=== PATIENT | female | born 1960 | race Two or more races ===

== ENCOUNTER → 2024-09-28 | Day surgery (SDC) | payer MEDICAID ==
[2024-09-24 12:07] LABS: Urine Bacteria None Seen /hpf (None Seen)
[2024-09-24 12:26] LABS: Urine Blood TRACE /uL (Negative); Urine Clarity Clear (Clear); Urine Color Light-Yellow (Yellow); Urine Protein, UAD 3+ (Negative); Urine Specific Gravity 1.012 (1.001-1.035); Urine Squamous Epithelial Cell FEW /hpf (<5); Urine Urobilinogen Normal (Negative); Urine WBC 1 /HPF (0-5)
[2024-09-24 12:31] LABS: Basophils # (auto) 0 10 ^3/uL (0-0.2); Basophils % (auto) 0.3 % (0.0-2.0); Eosinophils # (auto) 0.2 10 ^3/uL (0-0.8); Eosinophils % (auto) 2.5 % (0.0-7.0); Hematocrit 31.5 % (36.0-46.0); Hemoglobin 10.6 g/dL (12.2-16.2); Lymphocytes # (auto) 1.7 10 ^3/uL (0.4-5.4); Mean Corpuscular Hemoglobin 29.6 pg (28.0-32.0); Mean Corpuscular Hgb Conc. 33.7 g/dL (32.0-36.0); Mean Corpuscular Volume 87.8 fL (80.0-100.0); Monocytes # (auto) 0.3 10 ^3/uL (0-1.3); Monocytes % (auto) 4.4 % (0.0-12.0); Neutrophils # (auto) 4.5 10 ^3/uL (1.6-8.6); Neutrophils % (auto) 67.8 % (37.0-80.0); Nucleated Red Blood Cells % 0.1 %; Platelet Count (auto) 145 10^3/uL (140-450); Red Blood Cells 3.59 10^6/uL (4.0-5.20); Red Cell Distribution Width 14.8 % (11.8-14.3); White Blood Cell 6.6 10^3/uL (4.4-10.8)
[2024-09-24 12:51] LABS: INR 0.97 (0.9-1.15); Partial Thromboplastin Time 29.2 SEC (24.5-34.5); Prothrombin Time 10.3 sec (9.3-11.8)
[2024-09-24 13:12] LABS: Alanine Aminotransferase 10 U/L (7-40); Albumin 3.7 g/dL (3.2-4.8); Alkaline Phosphatase 108 U/L (46-116); Anion Gap 10 (5-15); Aspartate Aminotransferase 15 U/L (13-40); BUN/Creatinine Ratio 4.6 (10.0-20.0); Carbon Dioxide 25 mmol/L (20-31); Chloride 102 mmol/L (98-107); Potassium 4.3 mmol/L (3.5-5.1); Sodium 137 mmol/L (136-145); Total Protein 6.3 g/dL (5.7-8.2)
[2024-09-24 13:19] LABS: Bilirubin, Total 0.3 mg/dL (0.2-1.0); Blood Urea Nitrogen 26 mg/dL (9-23); Calcium 8.7 mg/dL (8.7-10.4); Glucose 147 mg/dL (74-106)
[~2024-09-28] VITALS: Ht 157.5 cm; Wt 72.6 kg
[~2024-09-28] MED LIST: B-CO-6 OR; CARV12.544 PO; DexAMETHasone SOD PHOS 10MG/1ML VIAL INJ ONE; EPINEPHrine HCL 1 MG/1 ML AMP ONE; FENO145T27 OR; FLUMAZENIL 0.1 MG/ML INJ 10ML MDV IV PRN; GLIP5TAB21 PO; GLYCOPYRROLATE 0.2 MG/ML 1ML VIAL ONE; HEPARIN SODIUM (PORCINE) 5000 UNITS/ML 1ML VIAL ONE; HYDROmorphone HCL 2 MG/ML VL/or syr IV PRN; INSLANTI SC; KETAMINE 50mg/ML 1ml syringe ONE; LIDO1KIT EX; LIDOCAINE 1% INJ PF 5ML AMP ONE; NALOXONE HCL 0.4 MG/ML VIAL IV PRN; NIFE90TA75 PO; ONDANSETRON HCL 4 MG/2 ML VIAL IV PRN; ONDANSETRON HCL 4 MG/2 ML VIAL ONE; PANT40TA2 PO; PROPOFOL 10 MG/ML 20 ML IV ONE; QUET50TA PO; SERT-160 PO; SEVE800T8 PO; ceFAZolin 2 GM/D5W50ml 50 ML IV ONE; ePHEDrine SULFATE 50 MG/ML AMP IV PRN; fentaNYL CITRATE 100 MCG/2 ML VL IV PRN; hydrALAZINE HCL 20 MG/ML VL IV PRN
[2024-09-28] MEDS: BUPIVACAINE HCL 0.25% P/F 10 ML VIAL ONE (08:06)
[2024-09-28] MEDS: LIDOCAINE 1% HCL (LOCAL ANESTH.) INJ 20ML MDV ONE (08:06)
[2024-09-28] MEDS: HEPARIN SODIUM (PORCINE) 5000 UNITS/ML 1ML VIAL ONE (08:07)
[2024-09-28 08:32] VITALS: PULSE 108; RESP 14; O2SAT 99
--- NOTE | 2024-09-28 08:40 | DVHOP2 ---
Operative Report - 2 Report Details Date: 09/28/24 Preop Diagnosis: End-stage renal disease Postop Diagnosis: s/p right AV fistula Surgeon: Matt De La Paz MD Anesthesiologist: Regional block Anesthesia: Regional Consent: The patient was informed of the risks and benefits of the procedure. These include but are not limited to complications of anesthesia, postoperative infection, incomplete relief of symptoms, recurrence of symptoms, damage to b lood vessels, nerves and tendons, deep venous thrombosis, pulmonary embolism and possible need for repeat surgery in the future. Name of Procedure Performed Right brachiocephalic arteriovenous fistula. Procedure Details Procedure Details: The patient was identified in the preop hold area. She was consented and preopped by myself. She was brought back to the operating room placed the operating table in supine position after adequate induction of anesthesia antibiotics and time-out the right arm was then prepped and draped in normal surgical position. A standard antecubital incision was made Bovie cauterization was used for hemostasis dissection was taken down through the dermis the cephalic vein was then mobilized at the antecubital fossa proximally and distally the appeared to be adequate size for fistula creation. The distal cephalic vein was then controlled at its branching point with silk sutures. Attention was then placed to identify the brachial artery. Brachial artery was controlled proximally and distally after it was dissected out. Vessel loops were placed proximally and distally around the brachial artery. 3000 units of heparin was then given to the patient. The distal cephalic vein was then ligated with a silk sutures. The cephalic vein was then spatulated. The cephalic vein was then dilated to 4 mm without difficulty was flushed with heparinized saline. The brachial artery was then controlled with a vessel loops and arteriotomy was made with 11 blade which was extended with the Dhaliwal scissors. The cephalic vein was then sewn to the brachial artery in a end-to- side fashion with 6 0 Prolene suture. At the completion of the anastomosis all vessels involved were unclamped. Flow was restored to the brachial artery distally there was a palpable radial pulse. There was a good thrill within the fistula immediately. This was all confirmed with Doppler signals. The wound was then irrigated out. The dermal layer was closed with 3-0 Vicryl sutures interruptedly followed by skin closure with 4-0 Monocryl subcuticular suture. Dermabond was applied to the skin. Sponge and needle counts were correct. Patient was brought to the recovery room in stable condition. Condition Stable Disposition Home MATT DE LA PAZ Jr., MD Sep 28, 2024 08:41
[2024-09-28 09:07] VITALS: BP 134/71; PULSE 101; RESP 20; O2SAT 98
== END | disposition home or self-care (01) ==
LOC: SUR 06:07
PROVIDERS: ATTEND Surgery Vascular Surgery
DX: I12.0 Hypertensive chronic kidney disease with stage 5 chronic kidney disease or end stage renal disease (principal); E11.22 Type 2 diabetes mellitus with diabetic chronic kidney disease; N18.6 End stage renal disease; E66.01 Morbid (severe) obesity due to excess calories; J45.909 Unspecified asthma, uncomplicated; K21.9 Gastro-esophageal reflux disease without esophagitis; Z87.11 Personal history of peptic ulcer disease; Z86.73 Personal history of transient ischemic attack (TIA), and cerebral infarction without residual deficits; Z90.49 Acquired absence of other specified parts of digestive tract; Z98.41 Cataract extraction status, right eye; Z98.42 Cataract extraction status, left eye; Z99.2 Dependence on renal dialysis; Z79.4 Long term (current) use of insulin; Z79.899 Other long term (current) drug therapy; Z88.8 Allergy status to other drugs, medicaments and biological substances; Z87.891 Personal history of nicotine dependence
CPT/HCPCS: 36415; 36821; 64415; 80053; 81001; 82962; 85025; 85610; 85730; 86850; 86900; 86901; J0171; J0690; J1100; J1644; J2003; J2405; J2704; J3490; J7040